=== PATIENT | male | born 1985 | race Caucasian/White ===

== ENCOUNTER 2017-11-25 05:56 | Emergency (ER) | payer SELFPAY ==
[~2017-11-25] VITALS: Ht 177.8 cm; Wt 70.0 kg
[~2017-11-25 05:56] MED LIST: CEPH500C3 PO; Z.0.NO CURRENT MEDS
[2017-11-25 06:02] VITALS: BP 131/93; PULSE 78; RESP 16; TEMP 98.7; O2SAT 99
--- NOTE | 2017-11-25 06:14 | PD ---
HPI . Seizure Chief Complaint: Seizure Time Seen by Provider: 06:10 Travel History International Travel<30 days: No Contact w/Intl Traveler<30days: No Traveled to known affect area: No History of Present Illness HPI This patient presents to us status post a seizure. The seizure was witnessed by friends area friends called [facility]. On the arrival of [facility], they found the patient A and O 3. He admitted to polysubstance use tonight. He denies any previous seizure disorder. This patient is refusing intervention. PFSH Social History Tobacco Use: Yes Allergies-Medications (Allergen,Severity, Reaction): Coded Allergies: No Known Allergies (Verified , 11/14/09) Reported Meds & Prescriptions Reported Meds & Active Scripts Active Keflex (Cephalexin Monohydrate) 500 Mg Cap 500 Mg PO BID Reported No Current Meds (Miscellaneous Medication) Misc Review of Systems Except as stated in HPI: all other systems reviewed are Neg General / Constitutional: No: Fever, Chills Eyes: No: Blurred Vision HENT: No: Headaches Neurologic: Positive: Seizures Psychiatric: Positive: Substance Abuse Physical Exam Narrative GENERAL: Awake and alert and in no acute distress. SKIN: Warm and dry. Multiple tattoos. HEAD: Normocephalic/atraumatic. EYES: Pupils are equal. Extraocular movements are intact. Distally NECK: Normal range of motion. CARDIOVASCULAR: Regular rate and rhythm. Heart sounds are normal. RESPIRATORY: Nonlabored respirations. Lungs are clear with full air movement throughout. MUSCULOSKELETAL: Atraumatic. NEUROLOGICAL: A and O 3. Cranial nerves are intact. Muscular strength is full and equal. Coordination is intact. PSYCHIATRIC: Appropriate mood and affect. Data Data Last Documented VS Vital Signs Date Time Temp Pulse Resp B/P (MAP) Pulse Ox O2 Delivery O2 Flow Rate FiO2 11/25/17 06:02 98.7 78 16 131/93 (106) 99 MDM Medical Decision Making Medical Screen Exam Complete: Yes Emergency Medical Condition: Yes Differential Diagnosis Differential diagnosis of seizure includes but is not limited to epilepsy, electrolyte abnormality, previous stroke, closed head injury Narrative Course This patient presents status post a seizure following polysubstance use tonight. He is declining intervention. He states that he has a sober friend who can come and pick him up. He will be signed out AMA when his friend gets here. AMA: The risks of leaving against medical advice without further evaluation treatment were discussed with the patient. These risks include cardiac dysfunction, cardiac dysrhythmia, possible heart attack, possible stroke or . The patient indicated understanding of these risks and appeared to have the capacity to make this decision. Diagnosis Primary Impression: Seizure Patient Instructions: General Instructions, New-Onset Seizure in Adults (DC) Disposition: 07 AGAINST MEDICAL ADVICE Roxie Kim MD Nov 25, 2017 06:14
== END 2017-11-25 06:47 | disposition left against medical advice (07) ==
LOC: NEPE 05:56
DX: R56.9 Unspecified convulsions (principal)
CPT/HCPCS: 99283

== ENCOUNTER 2017-12-10 11:09 | Emergency (ER) | payer SELFPAY ==
[2017-12-10 11:52] VITALS: BP 130/58; PULSE 58; RESP 14; TEMP 98.5; O2SAT 98
--- NOTE | 2017-12-10 13:24 | RADRPT ---
EXAM DATE/TIME: 12/10/2017 13:14 [facility] COMPARISON: No previous studies available for comparison. INDICATIONS : Left sided head pain, dizziness when standing. RADIATION DOSE: 56.35 CTDIvol (mGy) MEDICAL HISTORY : None SURGICAL HISTORY : None. ENCOUNTER: Initial ACUITY: 1 day PAIN SCALE: 10/10 LOCATION: Left cranial TECHNIQUE: Multiple contiguous axial images were obtained of the head. Using automated exposure control and adj ustment of the mA and/or kV according to patient size, radiation dose was kept as low as reasonably a chievable to obtain optimal diagnostic quality images. DICOM format image data is available electro nically for review and comparison. FINDINGS: CEREBRUM: The ventricles are normal for age. No evidence of midline shift, mass lesion, hemorrhage or acute in farction. No extra-axial fluid collections are seen. POSTERIOR FOSSA: The cerebellum and brainstem are intact. The 4th ventricle is midline. The cerebellopontine angle i s unremarkable. EXTRACRANIAL: The visualized portion of the orbits is intact. SKULL: The calvaria is intact. No evidence of skull fracture. CONCLUSION: Negative for acute process. MRI may offer more information Zach Parrish MD FACR on December 10, 2017 at 13:22 Board Certified Radiologist. This report was verified electronically.
[2017-12-10] MEDS ORDERED: AMOX500C PO (13:44)
[2017-12-10] MEDS ORDERED: CORTI10A LEFT EAR (13:46)
--- NOTE | 2017-12-10 13:46 | PD ---
HPI Chief Complaint: ENT Complaint Time Seen by Provider: 13:07 Travel History International Travel<30 days: No Contact w/Intl Traveler<30days: No Traveled to known affect area: No History of Present Illness HPI This is a 32-year-old male here with left ear pain 2 days. Patient is also reporting a left sided generalized headache which had a gradual onset. He had a single episode of dizziness upon standing this morning which lasted less than 10 seconds. Dizziness has since resolved. He reports this pain is similar to prior headaches. No visual changes. No neck pain. No fever. Symptoms severity is mild to moderate. No aggravating or alleviating factors. PFSH Past Medical History Medical History: Denies Significant Hx Diminished Hearing: No Tetanus Vaccination: < 5 Years Influenza Vaccination: No Past Surgical History Surgical History: No Previous Surgery Social History Alcohol Use: Yes Tobacco Use: Yes (1/2ppd) Substance Use: Yes (MARIJUANA, COCAINE, XANAX ) Allergies-Medications (Allergen,Severity, Reaction): Coded Allergies: No Known Allergies (Verified Adverse Reaction, Unknown, 12/10/17) Reported Meds & Prescriptions Reported Meds & Active Scripts Active Qpuwdlgy-Ghzvkukzr-DX Otic Drops (Neomycin/Polymyxin/Hydrocortisone) 1 % Soln 4 Drop LEFT EAR QID Amoxicillin 500 Mg Cap 500 Mg PO TID 10 Days Review of Systems Except as stated in HPI: all other systems reviewed are Neg General / Constitutional: No: Fever Eyes: No: Visual changes HENT: Positive: Headaches, Ear Discharge, Earache Cardiovascular: No: Chest Pain or Discomfort Respiratory: No: Shortness of Breath Gastrointestinal: No: Abdominal Pain Genitourinary: No: Dysuria Musculoskeletal: No: Pain Skin: No Rash Neurologic: No: Weakness Psychiatric: No: Depression Physical Exam Narrative GENERAL: Alert and well-appearing 32-year-old male SKIN: Warm and dry. No rash HEAD: Atraumatic. Normocephalic. EYES: Pupils equal and round. EOMs intact. No injection or drainage. Ear/nose/throat: Mild erythema of the left TM. Mild canal swelling with yellowish/white discharge. No mastoid tenderness. No pharyngeal erythema. No tonsillar hypertrophy rate today. Uvula is midline. Airway is patent. NECK: Trachea midline. No meningismus CARDIOVASCULAR: Regular rate and rhythm. RESPIRATORY: No accessory muscle use. Clear to auscultation. Breath sounds equal bilaterally. GASTROINTESTINAL: Abdomen soft, non-tender, nondistended. Hepatic and splenic margins not palpable. MUSCULOSKELETAL: Extremities without clubbing, cyanosis, or edema. No obvious deformities. NEUROLOGICAL: Awake and alert. No obvious cranial nerve deficits. Motor grossly within normal limits. Five out of 5 muscle strength in the arms and legs. Normal speech. PSYCHIATRIC: Appropriate mood and affect; insight and judgment normal. Data Data Last Documented VS Vital Signs Date Time Temp Pulse Resp B/P (MAP) Pulse Ox O2 Delivery O2 Flow Rate FiO2 12/10/17 11:52 98.5 58 14 130/58 (82) [address] Brain W/O Iv Contrast(Rout) (12/10/17 ) MDM Medical Decision Making Medical Screen Exam Complete: Yes Emergency Medical Condition: Yes Differential Diagnosis Otitis media, otitis externa, migraine headache, very unlikely mastoiditis Narrative Course 32-year-old male here with mild left ear pain and left-sided headache 2 days. On exam he has a mild case of otitis externa. He is well-appearing. He has a normal neurologic exam. Orthostatic BPs normal. CT scan is negative for acute process. Patient will be treated for otitis externa/otitis media Diagnosis Primary Impression: Otitis media Qualified Codes: H66.90 - Otitis media, unspecified, unspecified ear Referrals: Primary Care Physician Additional Instructions: Antibiotics as directed. Tylenol or ibuprofen as needed for pain. Follow-up the primary doctor. Return if he developed new or worsening symptoms Scripts Ytcmpgoo-Sfaqsfbra-BR Otic Drops (Avwfgtnk-Hnyjkgvjx-MG Otic Drops) 1 % Soln 4 DROP LEFT EAR QID for Infection, #1 BOTTLE 0 Refills Prov: Gissel Tee 12/10/17 Amoxicillin (Amoxicillin) 500 Mg Cap 500 MG PO TID for Infection for 10 Days, CAP 0 Refills Prov: Gissel Tee 12/10/17 Disposition: 01 DISCHARGE HOME Condition: Stable Gissel Tee Dec 10, 2017 13:46
== END 2017-12-10 14:08 | disposition home or self-care (01) ==
LOC: NEPK 11:09
DX: H66.92 Otitis media, unspecified, left ear (principal); R51 Headache; R42 Dizziness and giddiness; Z72.0 Tobacco use; F12.90 Cannabis use, unspecified, uncomplicated; F14.90 Cocaine use, unspecified, uncomplicated
CPT/HCPCS: 70450